=== PATIENT | female | born 1975 | race Caucasian/White ===

== ENCOUNTER → 2016-10-25 | Outpatient (CLI) | payer BC ==
[2016-10-25 17:11] LABS: Non-African American GFR(MDRD) 58 (>60 ml/min/1.73 sqM)
== END ==
LOC: LABWHC1 16:23
PROVIDERS: ATTEND Family Medicine
DX: Z01.818 Encounter for other preprocedural examination (principal); R20.2 Paresthesia of skin
CPT/HCPCS: 36415; 82565

== ENCOUNTER → 2016-10-26 | Outpatient (CLI) | payer BC ==
--- NOTE | 2016-10-26 09:26 | MR ---
MRI of the brain with and without contrast HISTORY: Dizziness, loss of balance and paresthesias of the skin. TECHNIQUE: T1-weighted sagittal, T2, FLAIR, and diffusion axial, postcontrast T1 axial and coronal vi ews of the brain are submitted. CONTRAST: 20 mL MultiHance FINDINGS: There is no evidence of acute ischemia. The ventricles, basal cisterns, and sulci overlying the co nvexities are consistent with the patient's age. There is no mass effect or enhancing mass. Craniocervical junction maintained. Sella turcica has a normal appearance. No evidence of cerebellopo ntine angle mass. There are changes of chronic sinusitis. WHITE MATTER: Single 5 mm area of abnormal signal within the right parietal white matter. No lesions perpendicular to the ventricular system. No callosal lesions. No enhancing lesions. No posterior fossa lesions. IMPRESSION: 1. No acute intracranial process. 2. Single nonspecific area of abnormal signal within the white matter can be seen with migraine heada ches or hypertension. Demyelinating process or remote microvascular ischemia not excluded. Correlate clinically.
== END | disposition home or self-care (01) ==
LOC: RADMRIMAIN 08:21
PROVIDERS: ATTEND Family Medicine
DX: R20.2 Paresthesia of skin (principal)
CPT/HCPCS: 70553; A9577

== ENCOUNTER → 2017-05-30 | Outpatient (CLI) | payer BC ==
--- NOTE | 2017-05-30 11:00 | XR ---
EXAMINATION TYPE: XR cervical spine comp DATE OF EXAM: 05/30/2017 COMPARISON: NONE HISTORY: 42-year-old female thoracic outlet syndrome, rule out cervical rib attachments TECHNIQUE: 5 views FINDINGS: No predental space widening or prevertebral soft tissue swelling. Mild disc/endplate degenerative yaritza nge at sacroiliac C4-C7 levels. Alignment is maintained. Normal odontoid view. No significant bony sp ondylotic near foraminal narrowing on either side. While no clear cervical rib is seen, the first thoracic ribs demonstrate prominent costal transverse process articulation at C7. IMPRESSION: 1. While no cervical rib is seen, the first thoracic ribs demonstrate prominent articulations with th e C7 transverse process. 2. Mild disc/endplate degenerative change mid to lower cervical spine.
== END ==
LOC: RADXRMAIN 08:40
PROVIDERS: ATTEND Psychiatry & Neurology Neurology
DX: M50.30 Other cervical disc degeneration, unspecified cervical region (principal)
CPT/HCPCS: 72050

== ENCOUNTER → 2017-07-25 | Outpatient (CLI) | payer BC ==
[2017-07-25 16:13] LABS: Vitamin D 25 Hydroxy 43.3 ng/mL (30.0-100.0)
[2017-07-25 18:48] LABS: Hemoglobin A1C 5.4 % (4.0-6.0)
== END | disposition home or self-care (01) ==
LOC: LABWHC1 09:07
PROVIDERS: ATTEND Psychiatry & Neurology Neurology
DX: E55.9 Vitamin D deficiency, unspecified (principal); M79.7 Fibromyalgia; R20.0 Anesthesia of skin
CPT/HCPCS: 36415; 82306; 82550; 82607; 83036; 85652; 86431

== ENCOUNTER 2019-03-08 06:31 | Day surgery (SDC) | payer BC ==
[2019-03-04 15:14] VITALS: BMI 40.1
[~2019-03-08 06:31] MED LIST: DEXAMETHASONE SOD PHOSPHATE 10 MG/ML 1 ML VIAL IV ONE; HYDROmorphone 0.5 MG/0.5 ML SYRINGE IVP PRN; LACTATED RINGERS 1,000 ML IV SCH; MIDAZOLAM 2 MG/2 ML VIAL IV PRN; ONDANSETRON 4 MG/2 ML VIAL IVP ONE; Pre Op ABX Message 1 EACH MISC MISCELLANE ONE; SCOPOLAMINE 1.5MG/72HR PATCH TRANSDERM ONE
[2019-03-08] MEDS ORDERED: LIDOCAINE 1% 20 ML VIAL (10MG/ML) FOR IV START INTRADERMA ONE (06:58)
--- NOTE | 2019-03-08 07:24 | P.HPOB ---
History of Present Illness H&P Date: 03/08/19 Chief Complaint: menorrhagia 43 year old presents for D&C hysteroscopy and endometrial ablation with NovaSure. Review of Systems All systems: negative Constitutional: Denies chills, Denies fever Eyes: denies blurred vision, denies pain Ears, nose, mouth and throat: Denies headache, Denies sore throat Cardiovascular: Denies chest pain, Denies shortness of breath Respiratory: Denies cough Gastrointestinal: Denies abdominal pain, Denies diarrhea, Denies nausea, Denies vomiting Genitourinary: Denies dysuria, Denies hematuria Musculoskeletal: Denies myalgias Integumentary: Denies pruritus, Denies rash Neurological: Denies numbness, Denies weakness Psychiatric: Denies anxiety, Denies depression Endocrine: Denies fatigue, Denies weight change Past Medical History Past Medical History: Fibromyalgia, Hypertension Additional Past Medical History / Comment(s): used to take BP medication but was told didn't need anymore, hasn't for 1-2 years, heavy periods History of Any Multi-Drug Resistant Organisms: None Reported Past Surgical History: Cholecystectomy, Tubal Ligation Additional Past Surgical History / Comment(s): ovarian cyst, D & C Past Anesthesia/Blood Transfusion Reactions: Postoperative Nausea & Vomiting (PONV) Smoking Status: Never smoker - Past Family History Mother Family Medical History: No Reported History Medications and Allergies Home Medications Medication Instructions Recorded Confirmed Type Cetirizine HCl [Zyrtec] 10 mg PO DAILY 03/04/19 03/08/19 History Cyanocobalamin (Vitamin B-12) 1,000 mcg PO DAILY 03/04/19 03/08/19 History [Vitamin B-12] Multivitamins, Thera [Multivitamin 1 tab PO DAILY 03/04/19 03/08/19 History (formulary)] [place]-3 Fatty Acids/Fish Oil [Fish 1 each PO DAILY 03/04/19 03/08/19 History Oil 1,000 mg Softgel] Soy Isofla/Blk Cohosh/Mag Bark 155 mg PO DAILY 03/04/19 03/08/19 History [Estroven 155 mg Capsule] Allergies Allergy/AdvReac Type Severity Reaction Status Date / Time meperidine HCl [From Demerol] Allergy Rash/Hives Verified 03/08/19 07:00 Exam Osteopathic Statement: *. No significant issues noted on an osteopathic structural exam other than those noted in the History and Physical/Consult. Vital Signs Temp Pulse Resp BP Pulse Ox 03/08/19 06:55 97.3 F L 84 16 170/91 97 Heart: RRR Lungs: CTAB Abd: soft, nontender Extremeties: neg jayson's Assessment and Plan (1) Menorrhagia Current Visit: Yes Status: Acute Code(s): N92.0 - EXCESSIVE AND FREQUENT MENSTRUATION WITH REGULAR CYCLE SNOMED Code(s): 466438184 Plan: 1. D&C hysteroscopy and endometrial ablation with NovaSure
[2019-03-08] MEDS ORDERED: LIDOCAINE 1% INJ 10MG/ML (20 ML MDV) ONE (07:27)
[2019-03-08] MEDS ORDERED: fentaNYL (PF) 50 MCG/ML 2 ML AMP ONE (07:27)
[2019-03-08] MEDS ORDERED: KETOROLAC 30 MG/ML 1 ML VIAL ONE (07:27)
[2019-03-08] MEDS ORDERED: PROPOFOL 10 MG/ML 20 ML VIAL IV ONE (07:27)
[2019-03-08] MEDS ORDERED: MIDAZOLAM 2 MG/2 ML VIAL ONE (07:27)
[2019-03-08 08:15] VITALS: TEMP 97
--- NOTE | 2019-03-08 08:20 | P.OP ---
Date of Procedure: 03/08/19 Preoperative Diagnosis: 1. Menorrhagia Postoperative Diagnosis: 1. Menorrhagia Procedure(s) Performed: D&C, hysteroscopy, endometrial ablation with NovaSure Anesthesia: MAC Surgeon: Danita Ac Estimated Blood Loss (ml): 2 IV fluids (ml): 200 Urine output (ml): 250 Pathology: other (Endometrial curettings) Condition: stable Disposition: PACU Operative Findings: Uterus sounded to 10 cm, cavity length 6.5 cm, width 4.8 cm, power 172 W, time of ablation 60 seconds. Adequate ablation noted after the NovaSure Description of Procedure: Patient is taken the operating room where general anesthesia was obtained without difficulty. She was prepped and draped in normal sterile fashion dorsal lithotomy position, legs placed in the candy cane stirrups. Bladder was drained of all urine. Weighted speculum placed in the vagina and the anterior lip the cervix was grasped with serial tooth tenaculum. The uterus sounded to 10 cm and the cervix under 3.5 cm making the cavity length 6.5 cm. The cervix was dilated to #8 Hegar dilator. Hysteroscopy was then performed. Both ostia were visualized and there was a smooth contour of the uterus. Sharp curet was then gently used to obtain endometrial curettings. The NovaSure was introduced into the uterus with a cavity length of 6.5 cm, width 4.8 cm. after cavity assessment was passed, the time of ablation was 60 seconds at 172 W. Hysteroscopy was again performed and adequate ablation was noted. All instruments removed from the vagina. Patient tolerated the procedure well, sponge and instrument counts were correct 2 and she was taken to recovery in stable condition.
[2019-03-08 09:09] VITALS: BP 153/98; PULSE 62; RESP 17
== END 2019-03-08 09:40 | disposition home or self-care (01) ==
LOC: OR 06:31
PROVIDERS: ATTEND Obstetrics & Gynecology
DX: N92.0 Excessive and frequent menstruation with regular cycle (principal); I10 Essential (primary) hypertension; M79.7 Fibromyalgia; Z90.49 Acquired absence of other specified parts of digestive tract; Z98.51 Tubal ligation status; Z79.899 Other long term (current) drug therapy; Z88.5 Allergy status to narcotic agent
CPT/HCPCS: 58563; 81025; 88305; J2250; J1100; J2405; J2001; J3010; J1885; J2704; 93005

== ENCOUNTER → 2019-08-16 | Outpatient (CLI) | payer BC ==
--- NOTE | 2019-08-16 12:04 | MM ---
Reason for exam: screening (asymptomatic). Baseline mammogram. History: Took hormonal contraceptives beginning at age 17. Physical Findings: Nurse did not find any significant physical abnormalities on exam. MG 3D Screening Mammo W/Cad Bilateral CC, MLO, and XCCL view(s) were taken. The breast tissue is extremely dense which could obscure a lesion on mammography. Finding: There are heterogeneous linear calcifications in the left breast. There is no discrete abnormality. These results were verbally communicated with the patient and result sheet given to the patient on 08/16/19. ASSESSMENT: Incomplete: need additional imaging evaluation, BI-RAD 0 RECOMMENDATION: Special view mammogram of the left breast.
--- NOTE | 2019-08-16 12:07 | MM ---
Reason for exam: additional evaluation requested from abnormal screening. History: Took hormonal contraceptives beginning at age 17. Physical Findings: Breast exam preformed at baseline screening. MG 3D Work Up W/Cad LT CC with magnification, LM with magnification, and LM view(s) were taken of the left breast. The breast tissue is extremely dense which could obscure a lesion on mammography. Finding: There are round, diffuse/scattered calcifications in the left breast. 7.4cm focal asymmetry 8cm from the nipple outer quadrant. No definite cluster of microcalcifications. These results were verbally communicated with the patient and result sheet given to the patient on 08/16/19. ASSESSMENT: Incomplete: need additional imaging evaluation, BI-RAD 0 RECOMMENDATION: Ultrasound of the left breast.
--- NOTE | 2019-08-16 12:09 | USB ---
Reason for exam: additional evaluation requested from abnormal screening. History: Took hormonal contraceptives beginning at age 17. US Breast Workup Limited LT Technologist: Ciara Chiu Left limited breast ultrasound including focal area of concern, retroareolar and axilla demonstrates a 1.2 x 0.7 x 0.8cm oval, hypoechoic, non-vascular lesion at 3 o'clock, increase through transmission, favor debris filled cyst and a 0.6 x 0.7 x 0.6cm round, cystic lesion at 2 o'clock. These results were verbally communicated with the patient and result sheet given to the patient on 08/16/19. ASSESSMENT: Probably benign, BI-RAD 3 RECOMMENDATION: Follow-up diagnostic mammogram of both breasts in 6 months. Ultrasound of the left breast in 6 months.
== END | disposition home or self-care (01) ==
LOC: RADMAMWWP 09:46
PROVIDERS: ATTEND Obstetrics & Gynecology
DX: Z12.31 Encounter for screening mammogram for malignant neoplasm of breast (principal); R92.8 Other abnormal and inconclusive findings on diagnostic imaging of breast
CPT/HCPCS: 77061; 77063; 77065; 77067

== ENCOUNTER → 2020-01-06 | Outpatient (CLI) | payer BC ==
--- NOTE | 2020-01-07 09:43 | MM ---
Reason for exam: follow-up at short interval from prior study. Last mammogram was performed 5 months ago. History: Took hormonal contraceptives beginning at age 17. Physical Findings: Nurse did not find any significant physical abnormalities on exam. MG 3D Diag Mammo W/Cad LT CC and MLO view(s) were taken of the left breast. Prior study comparison: August 16, 2019, left breast MG 3d work up w/cad LT. August 16, 2019, bilateral MG 3d screening mammo w/cad. The breast tissue is heterogeneously dense. This may lower the sensitivity of mammography. Diffuse punctate calcifications. Medial asymmetric density is unchanged for 6 months. Palpable marker at the axilla. These results were verbally communicated with the patient and result sheet given to the patient on 01/06/20. ASSESSMENT: Incomplete: need additional imaging evaluation, BI-RAD 0 RECOMMENDATION: Ultrasound of the left breast.
--- NOTE | 2020-01-07 09:47 | USB ---
Reason for exam: additional evaluation requested from abnormal screening. History: Took hormonal contraceptives beginning at age 17. US Breast LT Left complete breast ultrasound includes all four quadrants, the retroareolar region and axilla. Finding demonstrates a 0.4 x 0.4 x 0.3cm lesion too small to characterize at 2 o'clock, was seen 08/16/19, now decreased in size, likely cyst, a 0.4 x 0.4 x 0.3cm cystic lesion at 8 o'clock, duct ectasia at 4 o'clock posterior nipple and a 0.8 x 0.8 x 0.9cm lymph node at the axilla. The previously 3 o'clock abnormality currently has the appearance of an island of tissue. No abnormality at the axillary palpable site. These results were verbally communicated with the patient and result sheet given to the patient on 01/06/20. ASSESSMENT: Probably benign, BI-RAD 3 RECOMMENDATION: Follow-up diagnostic mammogram of both breasts in 6 months. 6 month follow up for the left medial asymmetric density. Manage on a clinical basis with regard to any suspicious palpable areas.
== END | disposition home or self-care (01) ==
LOC: RADMAMWWP 14:54
PROVIDERS: ATTEND Family Medicine
DX: R92.8 Other abnormal and inconclusive findings on diagnostic imaging of breast (principal); N63.32 Unspecified lump in axillary tail of the left breast
CPT/HCPCS: 77061; 77065

== ENCOUNTER → 2023-05-15 | Outpatient (CLI) | payer BC ==
--- NOTE | 2023-05-15 15:52 | MM ---
Reason for Exam: Clinical finding. Last mammogram was performed 3 year(s) and 9 month(s) ago. Patient History: Menarche at age 8. First Full-Term at age 17. Hormonal Contraceptives, starting at age 17. Risk Values: Kayce 5 year model risk: 0.8%. NCI Lifetime model risk: 7.1%. Prior Study Comparison: 08/16/2019 Bilateral Screening Mammogram, [facility]. 08/16/2019 Left Diagnostic Mammogram, [facility]. 08/16/2019 Left Diagnostic Ultrasound, [facility]. 01/06/2020 Left Diagnostic Mammogram, [facility]. 01/06/2020 Left Diagnostic Ultrasound, [facility]. Tissue Density: There are scattered fibroglandular densities. Findings: Analyzed By CAD. There our bilateral areas of grouped calcifications some of which are more suspicious than others. There is at least 2 more suspicious group areas in the right breast lateral aspect on CC view on a background of dense fibroglandular tissue. On the left there is at least one area in the inferior aspect on MLO view and another area on posterior depth on CC view. Overall Assessment: Suspicious, BI-RAD 4 Management: Stereotactic Core Biopsy of both breasts. Results were given to the patient verbally at the time of exam. Patient should continue monthly self-breast exams. A clinical breast exam by your physician is recommended on an annual basis. This exam should not preclude additional follow-up of suspicious palpable abnormalities. Note on Kayce scores and lifetime risk: 1. A Kayce score greater than 3% is considered moderate risk. If this is the case, consider specialist referral to assess eligibility for a risk reducing agent. 2. If overall lifetime risk for the development of breast cancer is 20% or higher, the patient may qualify for future screening with alternating mammogram and breast MRI. Electronically signed and approved by: Mark Riley DO
== END | disposition home or self-care (01) ==
LOC: RADMAMWWP 15:03
PROVIDERS: ATTEND Family Medicine
DX: R92.323 Mammographic fibroglandular density, bilateral breasts (principal)
CPT/HCPCS: 77062; 77066

== ENCOUNTER → 2023-06-02 | Outpatient (CLI) | payer BC ==
--- NOTE | 2023-06-02 08:06 | P.GSHP ---
History of Present Illness H&P Date: 06/02/23 Chief Complaint: Bilateral mammographic abnormalities Kalani is a 48-year-old white female seen in consultation for Dr. Swartz regarding bilateral mammographic abnormalities. She underwent a screening mammogram on 1020 [id number] which revealed microcalcifications of concern in each breast. On the right breast there were 2 areas which were recommended for biopsy and on the left one area. The radiographs were reviewed with Dr. Meeks this morning and he feels that 1 area in each breasts are sufficient and will be insurance healthcare representative. The patient had a mammogram 3 years ago and told she had a chain of nodes under her left arm. They have not changed. She recently had 2 co-workers diagnosed with breast cancer and this resulted in her having a mammogram. She does not feel anything new in her breast, she does complain of some persistent fullness under her left arm. She has never had any surgery on her breast. She has not had any recent trauma or infection in her breast. She does have intermittent itching of the left nipple. Caffiene: coffee/1-2 cups/day nicotine: none chocolate:weekly BCP: 8 years hormones: none Family History: paternal grandfather: leukemia maternal granmother: GIST tumor on her rectum maternal uncle: brain cancer maternal uncle: colon cancer maternal great grandmother: leukemia maternal great grandfather: stomach cancer Hormonal History: menarche: 8 07/25 M1 age at first : 17, breast fed: yes ablation in 2019, slight periods now; they are irregular Surgical History: gallbladder ovarian cyst tubaligation gastric sleeeve D&C Medical History: HTN fibromyalgia Social History: nicotine: none alcohol: none drugs: none - Constitutional Constitutional: Denies chills, Denies fever - EENT Eyes: denies blurred vision, denies pain Ears: deny: decreased hearing, tinnitus Ears, nose, mouth and throat: Denies headache, Denies sore throat - Breasts Breasts: bilateral: as per HPI - Cardiovascular Cardiovascular: Denies chest pain, Denies shortness of breath - Respiratory Respiratory: Denies cough, Denies 7 - Gastrointestinal Gastrointestinal: Denies abdominal pain, Denies diarrhea, Denies nausea, Denies vomiting - Genitourinary (Female) Genitourinary: Denies dysuria, Denies hematuria - Menstruation Menstruation: Reports as per HPI - Musculoskeletal Musculoskeletal: Denies myalgias - Integumentary Integumentary: Denies pruritus, Denies rash - Neurological Neurological: Denies numbness, Denies weakness - Psychiatric Psychiatric: Reports anxiety, Denies depression - Endocrine Endocrine: Denies fatigue, Denies weight change - Hematologic/Lymphatic Comment: none - Allergic/Immunologic Allergic/Immunologic: Reports seasonal allergies Past Medical History Past Medical History: Fibromyalgia, Hypertension Additional Past Medical History / Comment(s): used to take BP medication but was told didn't need anymore, hasn't for 1-2 years, heavy periods History of Any Multi-Drug Resistant Organisms: None Reported Past Surgical History: Cholecystectomy, Tubal Ligation, Uterine Ablation Additional Past Surgical History / Comment(s): ovarian cyst, D & C Past Anesthesia/Blood Transfusion Reactions: Postoperative Nausea & Vomiting (PONV) Past Psychological History: Anxiety Past Alcohol Use History: Rare Past Drug Use History: None Reported - Past Family History Mother Family Medical History: No Reported History Medications and Allergies Home Medications Medication Instructions Recorded Confirmed Type Cetirizine HCl [Zyrtec] 10 mg PO DAILY 03/04/19 06/02/23 History Cyanocobalamin (Vitamin B-12) 1,000 mcg PO DAILY 03/04/19 06/02/23 History [Vitamin B-12] Multivitamins, Thera [Multivitamin 1 tab PO DAILY 03/04/19 06/02/23 History (formulary)] Ibuprofen [Motrin] 600 mg PO Q6HR PRN #30 tab 03/08/19 06/02/23 Rx lisinopriL [Zestril] 10 mg PO DAILY 05/17/23 06/02/23 History Allergies Allergy/AdvReac Type Severity Reaction Status Date / Time meperidine HCl [From Demerol] Allergy Rash/Hives Verified 06/02/23 07:41 Surgical - Exam - General no distress - Eyes normal ocular movement - ENT no hearing loss - Neck trachea midline - Respiratory normal respiratory effort, clear to auscultation - Cardiovascular Rhythm: regular Heart Sounds: normal: S1, S2 - Abdomen Abdomen: soft, non tender, no guarding, no rigid, no rebound - Integumentary normal turgor - Neurologic no disoriented, no combative - Musculoskeletal normal gait - Psychiatric oriented to time, oriented to person, oriented to place, speech is normal, memory intact Breast Exam: BRA: 38C Inspection: Bilateral grade 2/3 ptosis Palpation: Right breast: Multiple positional exam fibrocystic changes no discrete dominant masses or nodules of concern Right axilla: No adenopathy of concern Left breast: Multi-positional exam fibrocystic changes no discrete dominant masses or nodules of concern Left axilla: No adenopathy of concern Fungal infection under her left breast Results Mammogram reviewed with radiology/the patient has diffuse microcalcifications in each breast. None are felt to be more suspicious than any other group. He has recommended a biopsy of each breast but only 1 on the right. He believes that the biopsy may be insurance healthcare representative of the rest of the calcifications. Assessment and Plan Assessment: Impression: Radiographic abnormality bilateral/bilateral diffuse calcifications Fibrocystic breast changes Fungal infection under her left breast Plan: Bilateral stereotactic core biopsy Nystatin under her left breast Risk and benefits of the procedure discussed with the patient. Risks include but are not limited to bleeding, infection, reaction to the anesthetic. If the biopsy specimens are discordant and further tissue acquisition may be necessary. The patient understands and wishes to proceed. Cc: Dr. Swartz
--- NOTE | 2023-06-02 10:10 | P.OP ---
Date of Procedure: 06/02/23 Preoperative Diagnosis: Bilateral microcalcifications of concern on mammogram from [id number] Postoperative Diagnosis: Same Procedure(s) Performed: Bilateral stereotactic core biopsy of the breast Anesthesia: local Surgeon: Susie Campbell Pathology: other (bilateral breast tissue with microcalcifications in specimens) Condition: stable Disposition: same day Indications for Procedure: Radiographic abnormality bilateral breast Operative Findings: Microcalcifications of concern in specimens from each side Description of Procedure: The patient is a 48-year-old white female who underwent a routine screening mammogram from [phone] was noted to have bilateral calcifications of concern. The radiograph was reviewed with Dr. Orestes leon who felt that stereotactic core biopsy of one site in the right breast and one site in the left breast would be textile designs sales representative. The patient on physical examination did not have any discrete lumps masses or nodules of concern in either breast. The patient after informed consent was taken to the stereotactic core biopsy room. The right breast was approached initially. A lateral to medial approach was utilized. A pound keeper film was obtained. The area of concern was identified. The area was targeted. The breast was prepped using chlorhexidine. 17 mL of 1% lidocaine was used to anesthetize the area of concern. A 9-gauge vacuum- assisted core rotating biopsy needle was driven to the coordinates. A prefire film was obtained and the needle was noted to be in the correct location. The needle was fired. A post-fire film revealed the needle be in the correct location. 12 core biopsy specimens were obtained. Radiograph of the specimens revealed the calcifications of concern. A suture marked Clip was placed. The area of the left breast was then approached. A pound keeper film was obtained. T he area of concern was identified. The area was targeted. The breast was prepped using chlorhexidine. 17 mL of 1% lidocaine was used to anesthetize the area of concern. A 9-gauge vacuum-assisted core rotating biopsy needle was driven to the correct coordinates. 12 core biopsy specimens were obtained. Radiograph of the specimen revealed only one microcalcification therefore an additional 12 core biopsy specimens were obtained. Radiograph did not reveal further calcifications. Therefore a secure cindi Top-Hat clip was placed and the area was retargeted. Upon retargeting a stereo pair was utilized at this time. The lesion was identified. The lesion was targeted. The breast was prepped using chlorhexidine. 17 mL of 1% lidocaine were used to anesthetize the area of concern. 9-gauge vacuum-assisted core rotating biopsy needle was again driven to the correct coordinates. The needle was fired. Post fire film revealed the needle be in the correct location. Core biopsy specimens were obtained. Radiograph revealed multiple calcifications. A tri cindi bow-tie clip was placed. The patient tolerated the procedures in stable condition. The final outcome were the followin. core biopsy right breast Top-Hat clip placed calcifications noted in specimen 2.. core biopsy left breast one calcification in specimen Top-Hat clip placed 3. Stereotactic core biopsy left breast multiple calcifications identified secure cindi clip bow-tie in place Postprocedure radiograph revealed the clips to be in the correct location. The specimen was sent to pathology. The patient will follow-up with Dr. Wilde in 1 week. CC: Dr. Swartz
== END ==
LOC: WWCWWP 07:28
PROVIDERS: ATTEND Surgery
DX: N60.11 Diffuse cystic mastopathy of right breast (principal); N60.12 Diffuse cystic mastopathy of left breast; N64.89 Other specified disorders of breast; B37.89 Other sites of candidiasis; I10 Essential (primary) hypertension; F41.9 Anxiety disorder, unspecified; M79.7 Fibromyalgia; Z85.3 Personal history of malignant neoplasm of breast; Z88.5 Allergy status to narcotic agent; Z90.49 Acquired absence of other specified parts of digestive tract; Z79.899 Other long term (current) drug therapy

== ENCOUNTER → 2023-06-02 | Day surgery (SDC) | payer BC ==
[2023-06-02 07:59] VITALS: PULSE 74
[2023-06-02 10:01] VITALS: BP 138/85; RESP 13; TEMP 98.7
--- NOTE | 2023-06-05 07:55 | MM ---
Date of Procedure: 06/02/23 Preoperative Diagnosis: Bilateral microcalcifications of concern on mammogram from [id number] Postoperative Diagnosis: Same Procedure(s) Performed: Bilateral stereotactic core biopsy of the breast Anesthesia: local Surgeon: Susie Campbell Pathology: other (bilateral breast tissue with microcalcifications in specimens) Condition: stable Disposition: same day Indications for Procedure: Radiographic abnormality bilateral breast Operative Findings: Microcalcifications of concern in specimens from each side Description of Procedure: The patient is a 48-year-old white female who underwent a routine screening mammogram from 102 [id number] was noted to have bilateral calcifications of concern. The radiograph was reviewed with Dr. Orestes leon who felt that stereotactic core biopsy of one site in the right breast and one site in the left breast would be claims customer service representative. The patient on physical examination did not have any discrete lumps masses or nodules of concern in either breast. The patient after informed consent was taken to the stereotactic core biopsy room. The right breast was approached initially. A lateral to medial approach was utilized. A director of retail film was obtained. The area of concern was identified. The area was targeted. The breast was prepped using chlorhexidine. 17 mL of 1% lidocaine was used to anesthetize the area of concern. A 9-gauge vacuum- assisted core rotating biopsy needle was driven to the coordinates. A prefire film was obtained and the needle was noted to be in the correct location. The needle was fired. A post-fire film revealed the needle be in the correct location. 12 core biopsy specimens were obtained. Radiograph of the specimens revealed the calcifications of concern. A suture marked Clip was placed. The area of the left breast was then approached. A director of retail film was obtained. The area of concern was identified. The area was targeted. The breast was prepped using chlorhexidine. 17 mL of 1% lidocaine was used to anesthetize the area of concern. A 9-gauge vacuum-assisted core rotating biopsy needle was driven to the correct coordinates. 12 core biopsy specimens were obtained. Radiograph of the specimen revealed only one microcalcification therefore an additional 12 core biopsy specimens were obtained. Radiograph did not reveal further calcifications. Therefore a secure cindi Top-Hat clip was placed and the area was retargeted. Upon retargeting a stereo pair was utilized at this time. The lesion was identified. The lesion was targeted. The breast was prepped using chlorhexidine. 17 mL of 1% lidocaine were used to anesthetize the area of concern. 9-gauge vacuum-assisted core rotating biopsy needle was again driven to the correct coordinates. The needle was fired. Post fire film revealed the needle be in the correct location. Core biopsy specimens were obtained. Radiograph revealed multiple calcifications. A tri cindi bow-tie clip was placed. The patient tolerated the procedures in stable condition. The final outcome were the followin. core biopsy right breast Top-Hat clip placed calcifications noted in specimen 2.. core biopsy left breast one calcification in specimen Top-Hat clip placed 3. Stereotactic core biopsy left breast multiple calcifications identified secure cindi clip bow-tie in place Postprocedure radiograph revealed the clips to be in the correct location. The specimen was sent to pathology. The patient will follow-up with Dr. Wilde in 1 week. ANGELITO
--- NOTE | 2023-06-05 07:56 | MM ---
Date of Procedure: 06/02/23 Preoperative Diagnosis: Bilateral microcalcifications of concern on mammogram from 1020 [id number] Postoperative Diagnosis: Same Procedure(s) Performed: Bilateral stereotactic core biopsy of the breast Anesthesia: local Surgeon: Susie Campbell Pathology: other (bilateral breast tissue with microcalcifications in specimens) Condition: stable Disposition: same day Indications for Procedure: Radiographic abnormality bilateral breast Operative Findings: Microcalcifications of concern in specimens from each side Description of Procedure: The patient is a 48-year-old white female who underwent a routine screening mammogram from 102 [id number] was noted to have bilateral calcifications of concern. The radiograph was reviewed with Dr. Orestes leon who felt that stereotactic core biopsy of one site in the right breast and one site in the left breast would be congressional representative. The patient on physical examination did not have any discrete lumps masses or nodules of concern in either breast. The patient after informed consent was taken to the stereotactic core biopsy room. The right breast was approached initially. A lateral to medial approach was utilized. A paper cone machine operator film was obtained. The area of concern was identified. The area was targeted. The breast was prepped using chlorhexidine. 17 mL of 1% lidocaine was used to anesthetize the area of concern. A 9-gauge vacuum- assisted core rotating biopsy needle was driven to the coordinates. A prefire film was obtained and the needle was noted to be in the correct location. The needle was fired. A post-fire film revealed the needle be in the correct location. 12 core biopsy specimens were obtained. Radiograph of the specimens revealed the calcifications of concern. A suture marked Clip was placed. The area of the left breast was then approached. A paper cone machine operator film was obtained. The area of concern was identified. The area was targeted. The breast was prepped using chlorhexidine. 17 mL of 1% lidocaine was used to anesthetize the area of concern. A 9-gauge vacuum-assisted core rotating biopsy needle was driven to the correct coordinates. 12 core biopsy specimens were obtained. Radiograph of the specimen revealed only one microcalcification therefore an additional 12 core biopsy specimens were obtained. Radiograph did not reveal further calcifications. Therefore a secure cindi Top-Hat clip was placed and the area was retargeted. Upon retargeting a stereo pair was utilized at this time. The lesion was identified. The lesion was targeted. The breast was prepped using chlorhexidine. 17 mL of 1% lidocaine were used to anesthetize the area of concern. 9-gauge vacuum-assisted core rotating biopsy needle was again driven to the correct coordinates. The needle was fired. Post fire film revealed the needle be in the correct location. Core biopsy specimens were obtained. Radiograph revealed multiple calcifications. A tri cindi bow-tie clip was placed. The patient tolerated the procedures in stable condition. The final outcome were the followin. core biopsy right breast Top-Hat clip placed calcifications noted in specimen 2.. core biopsy left breast one calcification in specimen Top-Hat clip placed 3. Stereotactic core biopsy left breast multiple calcifications identified secure cindi clip bow-tie in place Postprocedure radiograph revealed the clips to be in the correct location. The specimen was sent to pathology. The patient will follow-up with Dr. Wilde in 1 week. ANGELITO
== END ==
LOC: RADMAMWWP 07:26
PROVIDERS: ATTEND Surgery
DX: N60.81 Other benign mammary dysplasias of right breast (principal); N60.82 Other benign mammary dysplasias of left breast; N60.22 Fibroadenosis of left breast
CPT/HCPCS: 88305; 19081; 19082; A4648

== ENCOUNTER → 2023-06-09 | Outpatient (CLI) | payer BC ==
--- NOTE | 2023-06-09 10:40 | P.PN ---
Subjective Progress Note Date: 06/09/23 Principal diagnosis: Fibrocystic breast changes Kalani is a 48-year-old white female status post bilateral stereotactic core biopsy on [id number]. Pathology was benign concordant for both sides. She did complain of some swelling in the left axilla following the procedure. This has resolved. She also has some ecchymosis at the left biopsy site. Objective - Constitutional General appearance: Present: cooperative - EENT Eyes: Present: EOMI ENT: Present: hearing grossly normal - Neck Neck: Present: normal ROM - Respiratory Respiratory: bilateral: CTA - Cardiovascular Heart sounds: normal: S1, S2 - Integumentary Integumentary Comment(s): Biopsy site right breast no evidence of infection or hematoma Biopsy site left breast ecchymosis no infection or hematoma Examination of the left axilla does not reveal any adenopathy of concern Assessment and Plan Assessment: Impression: Bilateral Steritapes a core biopsy benign concordant Plan: Repeat bilateral mammogram in 6 months with examination at that time CC: Dr. Mcnally
[2023-06-09 12:14] VITALS: BP 153/76; PULSE 95; RESP 17; TEMP 98.4
== END ==
LOC: WWCWWP 10:18
PROVIDERS: ATTEND Surgery
DX: N60.12 Diffuse cystic mastopathy of left breast (principal); N64.89 Other specified disorders of breast; Z88.8 Allergy status to other drugs, medicaments and biological substances

== ENCOUNTER → 2023-10-13 | Outpatient (CLI) | payer BC ==
--- NOTE | 2023-10-13 17:40 | MR ---
EXAMINATION TYPE: MR brain wo/w con DATE OF EXAM: 10/13/2023 COMPARISON: 11/24/2016 HISTORY: Headaches, balance issues, eye issues, fatigue, memory TECHNIQUE: Multiplanar, multisequence images of the brain and brainstem is performed without and with IV contras t, utilizing 11 mL intravenous Gadavist . FINDINGS: The T2-weighted sagittal images the midline structures including the craniovertebral junction relatio nships are normal. The ventricles, basal cisterns and sulci over convexities are within normal limits and there is no ma ss effect or shift of midline structures. There are 2 small focal areas of abnormal increased signal intensity in the right centrum semiovale o ne of which was present on the prior study but there is a new smaller adjacent focal area of abnormal signal. The nonspecific findings and could represent chronic ischemic change. The possibility of dem yelinating disease is not excluded and clinical correlation is recommended. Based on diffusion-weight ed imaging, there is no acute ischemic event Following contrast administration, there is no pathological enhancement. The posterior fossa including the brainstem, fourth ventricle and cerebellopontine angles are normal. The intraorbital contents appear normal. The visualized paranasal sinuses and mastoid air cells are well aerated. IMPRESSION: 2 small foci of abnormal increased signal intensity in the right centrum semiovale one of which is ne w since the prior study. Findings are nonspecific and could represent chronic ischemic change. Demyel inating disease not excluded and correlation is recommended. There is no pathological enhancement or acute ischemic event. There is no mass effect or shift of the midline structures.
== END | disposition home or self-care (01) ==
LOC: RADMRIMAIN 14:36
PROVIDERS: ATTEND Family Medicine
DX: H53.9 Unspecified visual disturbance (principal); G45.3 Amaurosis fugax; R26.89 Other abnormalities of gait and mobility; R53.83 Other fatigue; R51.9 Headache, unspecified
CPT/HCPCS: 70553; A9585

== ENCOUNTER → 2025-01-21 | Outpatient (CLI) | payer BC ==
--- NOTE | 2025-01-21 08:40 | MM ---
Reason for Exam: Clinical finding. Last mammogram was performed 1 year(s) and 9 month(s) ago. Patient History: Menarche at age 8. First Full-Term at age 17. Hormonal Contraceptives, starting at age 17. 06/02/2023, MG stereo VAD BX LT on the Left side. 06/02/2023, Benign MG stereo VAD BX RT on the right side. Risk Values: Kayce 5 year model risk: 1.2%. NCI Lifetime model risk: 10.4%. Tissue Density: The breasts are heterogeneously dense, which may obscure small masses. Findings: Analyzed By CAD. Diffuse bilateral punctate calcifications are redemonstrated. One microclip right breast and 2 microclips left breast from prior biopsies. There is an asymmetric density are unchanged. No significant change from prior exams. Overall Assessment: Benign, BI-RAD 2 Management: Screening Mammogram of both breasts in 1 year. Given the patient's dense breast tissue, consideration can be given to supplementary screening with breast ultrasound. Results were given to the patient verbally at the time of exam. Patient should continue monthly self-breast exams. A clinical breast exam by your physician is recommended on an annual basis. This exam should not preclude additional follow-up of suspicious palpable abnormalities. Note on Kayce scores and lifetime risk: 1. A Kayce score greater than 3% is considered moderate risk. If this is the case, consider specialist referral to assess eligibility for a risk reducing agent. 2. If overall lifetime risk for the development of breast cancer is 20% or higher, the patient may qualify for future screening with alternating mammogram and breast MRI. [facility], , 01/21/2025 8:37 AM. Electronically signed and approved by: Harpreet Nance M.D. Radiologist
== END | disposition home or self-care (01) ==
LOC: RADMAMWWP 08:16
PROVIDERS: ATTEND Family Medicine
DX: R92.8 Other abnormal and inconclusive findings on diagnostic imaging of breast (principal); R92.333 Mammographic heterogeneous density, bilateral breasts; R92.1 Mammographic calcification found on diagnostic imaging of breast; Z92.0 Personal history of contraception
CPT/HCPCS: 77062; 77066